=== PATIENT | male | born 1960 | race Caucasian/White ===

== ENCOUNTER 2016-10-11 00:29 | Emergency (ER) | payer OTHER, SELFPAY ==
[2016-10-11] MEDS ORDERED: predniSONE 20 MG TAB ONE ×2 (01:00→01:02)
[2016-10-11] MEDS ORDERED: diphenhydrAMINE HCl 25 MG CAP ONE (01:00)
[2016-10-11] MEDS ORDERED: Famotidine 20 MG TAB ONE (01:01)
== END 2016-10-11 01:16 | disposition home or self-care (01) ==
LOC: BURERS 00:29
DX: L25.9 Unspecified contact dermatitis, unspecified cause (principal); J44.9 Chronic obstructive pulmonary disease, unspecified; Z87.891 Personal history of nicotine dependence
CPT/HCPCS: 99282; J7506

== ENCOUNTER 2021-01-21 14:37 | Emergency (ER) | payer OTHER, SELFPAY ==
[2021-01-21] MEDS ORDERED: Morphine 2 MG/ML VIAL ONE (15:52)
[2021-01-21] MEDS ORDERED: Morphine 4 MG/ML VIAL ONE ×2 (15:53→21:38)
[2021-01-21 15:54] LABS: #Basophils 0.1 thou/uL (0.0-0.2); #Eosinphils 0.3 thou/uL (0.0-0.7); #Lymphocytes 1.9 thou/uL (1.20-3.40); #Monocytes 0.5 thou/uL (0.11-0.59); #Neutrophils 7.9 thou/uL (1.40-6.50); %Basophils 1.1 % (0.0-1.0); %Eosinophils 3.1 % (0.0-10.0); %Lymphocytes 17.9 % (21.0-51.0); %Neutrophils 72.9 % (42.0-75.0); Hemoglobin 15.9 g/dL (14.0-18.0); Mean Corpuscular HGB CONC 32.8 g/dL (32.0-36.0); Mean Corpuscular Hemoglobin 29.8 pg (27.0-31.0); Mean Corpuscular Volume 90.7 fL (78.0-98.0); Mean Platelet Volume 7.7 fL (7.4-10.4); Platelet Count 235 thou/uL (130-400); RBC Distribution Width 12.8 % (11.5-14.5); Red Blood Cell (RBC) Count 5.34 mill/uL (4.70-6.10); White Blood Cell (WBC) Count 10.8 thou/uL (4.8-10.8)
[2021-01-21 16:00] LABS: Prothrombin Time 12.6 sec (12.0-14.7)
[2021-01-21 16:07] LABS: ALT (SGPT) 38 U/L (8-55); AST (SGOT) 35 U/L (5-34); Albumin 3.9 g/dL (3.5-5.0); Alkaline Phosphatase 82 U/L (40-110); Anion Gap 13 mmol/L (10-20); BUN (Urea Nitrogen) 12 mg/dL (8.4-25.7); Bilirubin, Total 0.5 mg/dL (0.2-1.2); Calc. Creatinine Clearance 0 mL/min (70-130); Calcium 9.1 mg/dL (7.8-10.44); Carbon Dioxide 26 mmol/L (22-29); Chloride 103 mmol/L (98-107); Globulin 3.3 g/dL (2.4-3.5); Glucose 116 mg/dL (70-105); Potassium 3.9 mmol/L (3.5-5.1); Protein, Total 7.2 g/dL (6.0-8.3); Sodium 138 mmol/L (136-145)
[2021-01-21] MEDS ORDERED: Morphine 10 MG/ML VIAL ONE (18:01)
[2021-01-21] MEDS ORDERED: Lidocaine 1% w/Epinephrine 1:100K 20 ML VIAL ONE (21:21)
[2021-01-21] MEDS ORDERED: Boostrix 0.5 ML (Tdap) VIAL ONE (21:38)
[2021-01-21] MEDS ORDERED: TETANUS, DIPHTHERIA TOX,ADULT (TDVAX) 0.5 ML VIAL IM ONE (21:38)
== END 2021-01-21 22:10 | disposition home or self-care (01) ==
LOC: BURERS 14:37
DX: S32.019A Unspecified fracture of first lumbar vertebra, initial encounter for closed fracture (principal); S01.01XA Laceration without foreign body of scalp, initial encounter; J44.9 Chronic obstructive pulmonary disease, unspecified; F17.210 Nicotine dependence, cigarettes, uncomplicated; Z23 Encounter for immunization; W13.2XXA Fall from, out of or through roof, initial encounter
CPT/HCPCS: 36415; 70450; 71250; 72125; 74177; 80053; 83605; 85025; 85610; 90471; 90714; 90715; 93005; 96374; 96376; J2270